=== PATIENT | male | born 1960 | race Hispanic/Latino ===

== ENCOUNTER 2023-03-24 10:55 | Emergency (ER) | payer OTHER ==
[~2023-03-24] VITALS: Ht 165.1 cm; Wt 72.6 kg
[2023-03-24 11:22] LABS: BASOPHILS # (AUTO) 0.07 K/uL (0.00-0.20); BASOPHILS % (AUTO) 0.7 % (0.0-5.0); EOSINOPHILS # (AUTO) 0.16 K/uL (0.00-0.70); EOSINOPHILS % (AUTO) 1.6 % (0.0-8.0); HEMATOCRIT 40.8 % (42-54); IMMATURE GRANULOCYTE ABSOLUTE 0.05 K/uL (0-1); LYMPHOCYTES # (AUTO) 1.3 K/uL (1.0-4.8); LYMPHOCYTES % (AUTO) 13.2 % (21.0-51.0); MEAN CORPUSCULAR HEMOGLOBIN 28.6 pg (27.0-33.0); MEAN CORPUSCULAR HGB CONC 32.8 g/dL (32.0-36.0); MONOCYTES # (AUTO) 0.8 K/uL (0.1-1.0); MONOCYTES % (AUTO) 7.6 % (3.0-13.0); NEUTROPHILS # (AUTO) 7.5 K/uL (1.8-7.7); NEUTROPHILS % (AUTO) 76.4 % (40.0-77.0); PLATELET COUNT (AUTO) 164 K/uL (130-400); RED BLOOD CELL COUNT(AUTO) 4.69 MIL/uL (4.50-6.20); RED CELL DISTRIBUTION WIDTH 12.6 % (11.0-15.5); WHITE BLOOD COUNT (AUTO) 9.8 K/uL (4.8-10.8)
[2023-03-24 11:31] LABS: CREATININE 0.8 mg/dL (0.5-1.5); POTASSIUM 3.8 mmol/L (3.5-5.1)
[2023-03-24 11:33] LABS: APPEARANCE,URINE CLEAR (CLEAR); BILIRUBIN,URINE NEGATIVE (NEGATIVE); COLOR,URINE COLORLESS (YELLOW); GLUCOSE, URINE (UA) NEGATIVE (NEGATIVE); KETONES,URINE NEGATIVE (NEGATIVE); LEUKOCYTE ESTERASE ,URINE NEGATIVE Leu/uL (NEGATIVE); NITRATE,URINE NEGATIVE (NEGATIVE); OCCULT BLOOD,URINE NEGATIVE (NEGATIVE); PH,URINE 6.5 (5.0-8.0); PROTEIN,URINE NEGATIVE (NEGATIVE); UROBILINOGEN,URINE 0.2 mg/dL (0.2-1.0)
[2023-03-24 11:34] LABS: ADD UA MICROSCOPIC NO
[2023-03-24 11:39] LABS: BILIRUBIN,TOTAL 0.4 mg/dL (0.2-1.0); MAGNESIUM 1.8 mg/dL (1.80-2.40); TOTAL PROTEIN, SERUM 6.3 g/dL (6.0-8.3)
[2023-03-24 11:54] LABS: B-TYPE NATRIURETIC PEPTIDE 504 pg/mL (0-100)
[2023-03-24 15:04] VITALS: BP 127/69; PULSE 63; RESP 17; O2SAT 97
[2023-03-24] MEDS ORDERED: MAGNESIUM OXIDE 400 MG TABLET PO ONE (15:30)
== END 2023-03-24 15:16 | disposition home or self-care (01) ==
LOC: EDH 10:55
DX: F17.210 Nicotine dependence, cigarettes, uncomplicated (principal); I49.3 Ventricular premature depolarization; R06.02 Shortness of breath; R07.89 Other chest pain; I10 Essential (primary) hypertension; E11.9 Type 2 diabetes mellitus without complications; E78.00 Pure hypercholesterolemia, unspecified; Z98.890 Other specified postprocedural states
CPT/HCPCS: 36415; 71045; 80053; 81003; 83735; 83880; 84484; 85025; 93005

== ENCOUNTER 2024-04-22 19:45 | Inpatient (IN) | payer SELFPAY ==
[~2024-04-22] VITALS: Ht 165.1 cm; Wt 65.8 kg
[2024-04-23] VITALS (9 sets, daily range): BP systolic 107–120; BP diastolic 59–83; PULSE 63–100; RESP 16–20; TEMP 98.5–98.9; O2SAT 95–98
[2024-04-23] MEDS ORDERED: ondanSETRON 4MG INJ IVP PRN (03:30)
[2024-04-23] MEDS ORDERED: acetaMINOPHEN 325 MG TAB PO PRN (03:30)
[2024-04-23] MEDS ORDERED: NITROGLYCERIN 0.4 MG SL TAB SL PRN (03:30)
[2024-04-23 04:34] LABS: BASOPHILS # (AUTO) 0.03 K/uL (0.00-0.20); BASOPHILS % (AUTO) 0.3 % (0.0-5.0); EOSINOPHILS # (AUTO) 0.28 K/uL (0.00-0.70); EOSINOPHILS % (AUTO) 2.8 % (0.0-8.0); HEMATOCRIT 51.5 % (42-54); IMMATURE GRANULOCYTE ABSOLUTE 0.09 K/uL (0-1); LYMPHOCYTES # (AUTO) 1.9 K/uL (1.0-4.8); LYMPHOCYTES % (AUTO) 18.9 % (21.0-51.0); MEAN CORPUSCULAR HEMOGLOBIN 27.4 pg (27.0-33.0); MEAN CORPUSCULAR HGB CONC 32.8 g/dL (32.0-36.0); MEAN CORPUSCULAR VOLUME 83.5 fL (79-99); MONOCYTES # (AUTO) 1.2 K/uL (0.1-1.0); MONOCYTES % (AUTO) 11.6 % (3.0-13.0); NEUTROPHILS # (AUTO) 6.6 K/uL (1.8-7.7); NEUTROPHILS % (AUTO) 65.5 % (40.0-77.0); PLATELET COUNT (AUTO) 225 K/uL (130-400); RED BLOOD CELL COUNT(AUTO) 6.17 MIL/uL (4.50-6.20); RED CELL DISTRIBUTION WIDTH 13.2 % (11.0-15.5)
[2024-04-23 04:57] LABS: ALBUMIN 3.2 g/dL (3.5-5.0); BILIRUBIN,TOTAL 0.9 mg/dL (0.2-1.0); CREATININE 1.1 mg/dL (0.5-1.3); POTASSIUM 4.3 mmol/L (3.5-5.1); TOTAL PROTEIN, SERUM 7.6 g/dL (6.0-8.3)
[2024-04-23 05:10] LABS: B-TYPE NATRIURETIC PEPTIDE 232 pg/mL (0-100)
[2024-04-23 05:28] LABS: INR 1.11 (0.85-1.15); PROTHROMBIN TIME 11.9 SEC (9.6-11.6)
[2024-04-23 05:30] LABS: PARTIAL THROMBOPLASTIN TIME 29.2 SEC (26.3-35.5)
[2024-04-23] MEDS: ASPIRIN 81MG CHEW TAB PO SCH (08:48)
[2024-04-23] MEDS: PANTOPrazole 40 MG/VIAL IVP SCH (08:48)
[2024-04-23] MEDS: SACUBITRIL/VALSARTAN 1 EACH TABLET PO SCH (08:48)
[2024-04-23] MEDS: cloPIDOgrel 75MG TAB PO SCH (08:48)
[2024-04-23] MEDS: carVEDIlol 6.25 MG TABLET PO SCH (08:48)
[2024-04-23] MEDS ORDERED: ASPI-1197 (14:17)
[2024-04-23] MEDS ORDERED: CLOP-31 (14:17)
[2024-04-23] MEDS ORDERED: SACU1TAB PO (14:17)
[2024-04-23] MEDS ORDERED: ATOR80TA (14:17)
[2024-04-23] MEDS ORDERED: NITR.4 (14:17)
[2024-04-23] MEDS ORDERED: CARV6.25 (14:17)
[2024-04-23] MEDS ORDERED: FURO40TA5 (14:17)
[2024-04-23] MEDS: atorVAStatin 40 MG TABLET PO SCH (20:12)
[2024-04-24] VITALS (18 sets, daily range): BP systolic 97–123; BP diastolic 54–77; PULSE 54–70; RESP 17–20; TEMP 97.8–99; O2SAT 97–98
[2024-04-24 03:48] LABS: HEMATOCRIT 50.2 % (42-54); MEAN CORPUSCULAR HEMOGLOBIN 27.7 pg (27.0-33.0); MEAN CORPUSCULAR HGB CONC 32.5 g/dL (32.0-36.0); MEAN CORPUSCULAR VOLUME 85.2 fL (79-99); RED BLOOD CELL COUNT(AUTO) 5.89 MIL/uL (4.50-6.20); RED CELL DISTRIBUTION WIDTH 13.2 % (11.0-15.5); WHITE BLOOD COUNT (AUTO) 9.7 K/uL (4.8-10.8)
[2024-04-24 04:02] LABS: CREATININE 1.2 mg/dL (0.5-1.3); POTASSIUM 4.1 mmol/L (3.5-5.1)
[2024-04-24] MEDS ORDERED: NITROGLYCERIN 50MG VIAL ONE ×2 (07:46→13:15)
[2024-04-24] MEDS ORDERED: IOHEXOL 350 MG/ML 100ML INFUS..BTL IV ONE ×2 (07:46→13:15)
[2024-04-24] MEDS ORDERED: HEParin-NS 1,000 UNIT/500 ML 0 ML IV ONE (07:46)
[2024-04-24] MEDS ORDERED: LIDOCAINE HCL 400MG/20ML VIAL ONE ×2 (07:46→13:13)
[2024-04-24] MEDS ORDERED: HEParin 10,000 UNIT/10ML (1,000 UNIT/ML) VIAL ONE ×2 (07:51→13:15)
[2024-04-24] MEDS ORDERED: BIVALIRUDIN 250 MG/VIAL IV ONE ×2 (07:51→13:22)
[2024-04-24] MEDS ORDERED: MIDAZOLAM HCL 1 MG/ML 2ML VIAL ONE ×2 (08:07→13:14)
[2024-04-24] MEDS ORDERED: FENTanyl CITRate PF 50 MCG/1 ML 2ML VIAL ONE ×2 (08:07→13:14)
[2024-04-24] MEDS ORDERED: HEParin-NS 1,000 UNIT/500 ML 1,000 ML IV ONE (13:15)
[2024-04-24] MEDS ORDERED: SODIUM BICARB 50MEQ 50ML VIAL 50 ML ONE (13:19)
[2024-04-24] MEDS ORDERED: IOHEXOL-350 50ML VIAL IV ONE ×2 (13:22→14:14)
[2024-04-24] MEDS: 0.9%NACL 1000ML 1,000 ML IV SCH (15:37)
[2024-04-25 00:14] VITALS: BP 124/68; PULSE 61; RESP 20; TEMP 99.6
[2024-04-25 04:01] VITALS: BP 112/59; PULSE 61; RESP 19; TEMP 98.1
[2024-04-25 05:03] LABS: HEMATOCRIT 46.5 % (42-54); MEAN CORPUSCULAR HEMOGLOBIN 27.8 pg (27.0-33.0); MEAN CORPUSCULAR HGB CONC 31.8 g/dL (32.0-36.0); MEAN CORPUSCULAR VOLUME 87.4 fL (79-99); RED BLOOD CELL COUNT(AUTO) 5.32 MIL/uL (4.50-6.20); RED CELL DISTRIBUTION WIDTH 13.2 % (11.0-15.5); WHITE BLOOD COUNT (AUTO) 11.2 K/uL (4.8-10.8)
[2024-04-25 05:09] LABS: POTASSIUM 4.2 mmol/L (3.5-5.1)
[2024-04-25 08:00] VITALS: O2SAT 100
[2024-04-25 08:56] VITALS: BP 113/75; PULSE 67; RESP 18; TEMP 99.3
[2024-04-25 09:29] VITALS: BP 113/75
== END 2024-04-25 12:54 | disposition home or self-care (01) | DRG 281 ==
LOC: 2DH 04-23 01:20
PROVIDERS: ADMIT Internal Medicine; ATTEND Internal Medicine
PROC: 4A023N7 Measurement of Cardiac Sampling and Pressure, Left Heart, Percutaneous Approach (ICD-10-PCS; principal; 2024-04-24)
PROC: B2111ZZ Fluoroscopy of Multiple Coronary Arteries using Low Osmolar Contrast (ICD-10-PCS; 2024-04-24)
PROC: B212YZZ Fluoroscopy of Single Coronary Artery Bypass Graft using Other Contrast (ICD-10-PCS; 2024-04-24)
PROC: B218YZZ Fluoroscopy of Left Internal Mammary Bypass Graft using Other Contrast (ICD-10-PCS; 2024-04-24)
PROC: B2151ZZ Fluoroscopy of Left Heart using Low Osmolar Contrast (ICD-10-PCS; 2024-04-24)
DX: I21.4 Non-ST elevation (NSTEMI) myocardial infarction (principal); I25.810 Atherosclerosis of coronary artery bypass graft(s) without angina pectoris; I42.0 Dilated cardiomyopathy; I25.10 Atherosclerotic heart disease of native coronary artery without angina pectoris; E11.9 Type 2 diabetes mellitus without complications; I50.9 Heart failure, unspecified; D64.9 Anemia, unspecified; I07.1 Rheumatic tricuspid insufficiency; I25.5 Ischemic cardiomyopathy; E78.5 Hyperlipidemia, unspecified; Z91.148 Patient's other noncompliance with medication regimen for other reason; Z82.49 Family history of ischemic heart disease and other diseases of the circulatory system; Z95.1 Presence of aortocoronary bypass graft; Z87.891 Personal history of nicotine dependence; Z79.899 Other long term (current) drug therapy
CPT/HCPCS: 36415; 71045; 80048; 80053; 82948; 83735; 83880; 84484; 85025; 85027; 85610; 85730; 93005; 93459; 99156; 99157; C1760; C1769; C1894; G0378; J0583; J1644; J2250; J2470; J3010; J3490; Q9967; Q9965